=== PATIENT | female | born 1955 | race Caucasian/White ===

== ENCOUNTER 2018-08-05 10:59 | Inpatient (IN) ==
[2018-08-05] MEDS ORDERED: 0.9 % Sodium Chloride 1,000 ML IVC ONE (11:22)
--- NOTE | 2018-08-05 11:22 | Emergency Department Note ---
Disposition Clinical Impression: Hypomagnesemia, Hypocalcemia, Hypokalemia, Paresthesias Disposition: Admitted As Inpatient Condition: Good Referrals: NONE,PCP [Non-Partnered Physician] - Forms: ED Satisfaction Letter Time of Disposition: 12:10 Weakness HPI - General Chief complaint: ED Weakness Stated complaint: weakness, tingling, possible electrolite imbalance Time Seen by Provider: 08/05/18 11:09 Source: patient Mode of arrival: ambulatory Limitations: physical limitation, age Nursing Notes Reviewed: Yes Vital Signs Reviewed: Yes - History of Present Illness HPI Narrative: 63-year-old female who presents today with tingling and cramping in her arms and face. She states she has had this twice before both times her magnesium spelled very low. She presents today with 2 day history of getting worse. She states she has had some diarrhea recently. She states that she has had low magnesium in the past and she is taking magnesium and calcium supplements. She states that she was working yesterday in her house cleaning the house doing vacuuming and she started to feel very weak and like she was going to follow-up. She states the tingling got a lot worse after that. Pain Scale: 0 - Related Data Home Medications Medication Instructions Recorded Confirmed Cholecalciferol (D-3) [Vitamin D] 2,000 unit PO BID #0 01/12/16 08/05/18 Fish Oil/Dha/Epa [Fish Oil 1,200 1 cap PO DAILY #0 01/12/16 05/04/17 mg Fish Oil] Magnesium 200 mg PO DAILY #0 01/12/16 05/04/17 Carvedilol [Coreg] 6.25 mg PO BID 05/04/17 08/05/18 Clopidogrel [Plavix] 75 mg PO DAILY 05/04/17 08/05/18 Levothyroxine [Synthroid] 150 mcg PO DAILY 05/04/17 08/05/18 Olq198/Iron Fumarate/FA/Dss 1 tab PO DAILY 05/04/17 05/04/17 [ 19 Tablet] Previous Rx's Medication Instructions Recorded Atorvastatin [Lipitor] 80 mg PO HS #30 tablet 12/06/15 Lisinopril [Zestril] 2.5 mg PO DAILY #30 tablet 12/06/15 Nitroglycerin 0.4 mg SL Q5MIN PRN #30 tab.subl 12/06/15 Allergies Allergy/AdvReac Type Severity Reaction Status Date / Time Sulfa (Sulfonamide Allergy See Verified 08/05/18 11:01 Antibiotics) Comments Review of Systems: All other systems are negative except as noted/marked Chart generated with voice recognition software Nursing notes reviewed Old records reviewed Past Medical History - Past Medical History Attestation: Yes The following information was validated with the patient. Source: patient, old records reviewed, nursing notes reviewed Medical history: Reports: arthritis, CHF, coronary artery disease, hyperlipidemia, hypertension, kidney stones, myocardial infarction, thyroid disease, other Surgical history: Reports: angioplasty/stent, other (Gastric bypass in 1974) Psychiatric history: Reports: no psych history - Social History Smoking Status: Former smoker Smokeless Tobacco Status: No Alcohol use: Reports: none Drug use: Reports: none Physical Exam General: NAD, VSS Head: normocephalic, atraumatic, negative chvostek sign Eyes: EOMI, PERRLA mouth: moist mucous membranes Neck: NO CLA, Supple Chest wall: normal rise, no crepitus, no deformity noted Lungs: moving air well, no distress Heart: RRR Abd: soft, nontender, BS normal : deferred MSK: strength equal in all four extremities Ext: moves all four extremities, no obvious deformities, negative trousseau's sign Skin: cap refill normal, warm, dry neuro : CN2-12 grossly intact, A&Ox3 Psych: normal affect, not anxious - General Limitations: physical limitation, age General appearance: alert Course Vital Signs Temperature 97.3 F L 08/05/18 11:01 Pulse Rate 67 08/05/18 11:01 Respiratory Rate 18 08/05/18 11:01 Blood Pressure 113/62 08/05/18 11:01 O2 Sat by Pulse Oximetry 96 08/05/18 11:01 Temperature 97.3 F L 08/05/18 11:01 Pulse Rate 60 08/05/18 11:49 Respiratory Rate 18 08/05/18 11:49 Blood Pressure 113/77 08/05/18 11:49 O2 Sat by Pulse Oximetry 98 08/05/18 11:49 Oxygen Delivery Oxygen Delivery Room Air Weakness - MDM Narrative Medical decision making narrative: Patient presents today with numbness tingling paresthesias and weakness at home. She is low in her magnesium calcium and potassium. It started the initial replacement here in the department however her deficits or so profound that I do not think we can replace them adequately in the ER. I discussed that with allergies comfortable with being admitted in the hospital. Hospitalist will be paged for admission. Booker paged at [phone] booker accepted the patient. - Medical Records Medical records reviewed: Yes I reviewed the patient's medical records. - Lab Data Lab results reviewed: Yes I reviewed the patient's lab results. Result diagrams: 08/05/18 11:32 08/05/18 11:32 Lab Results 08/05/18 08/05/18 Range/Units 11:32 11:32 WBC 5.6 (4.3-11.1) K/mcL RBC 3.52 L (3.82-4.97) M/mcL Hgb 10.7 L (11.5-15.4) g/dL Hct 33.4 L (35.3-44.9) % MCV 94.9 (83.0-100.0) fL MCH 30.4 (28.0-33.3) pg MCHC 32.0 (31.6-35.5) g/dL RDW 13.7 (11.5-14.5) % Plt Count 182 (140-400) K/mcL MPV 10.9 (9.4-12.4) fL Immature Gran % 0.5 (0-4) % Seg Neutrophils % 73.2 % Lymphocytes % 15.9 % Monocytes % 7.0 % Eosinophils % 2.9 % Basophils % 0.5 % Neutrophils # 4.1 (1.6-8.9) K/mcL Lymphocytes # 0.9 (0.6-4.6) K/mcL Monocytes # 0.4 (0.0-1.3) K/mcL Eosinophils # 0.2 (0.0-0.6) K/mcL Basophils # 0.0 (0.0-0.2) K/mcL Sodium 141 (136-145) mEq/L Potassium 3.4 L (3.5-5.1) mEq/L Chloride 114 H (98-107) mEq/L Carbon Dioxide 20 L (23-29) mEq/L BUN 29 H (8-23) mg/dL Creatinine 1.36 H (0.60-1.20) mg/dL Est GFR ( Amer) 47 L (> 60) Est GFR (Non-Af Amer) 39 L (> 60) BUN/Creatinine Ratio 21 (6-26) Glucose 95 (70-105) mg/dL Calculated Osmolality 298 (280-300) Calcium 5.8 L* (8.6-10.3) mg/dL Phosphorus 3.8 (2.7-4.5) mg/dL Magnesium 0.5 L (1.6-2.6) mg/dL Troponin I < 0.03 (< 0.04) ng/mL TSH 3.282 (0.340-5.600) mcIU/mL - Radiology Data Radiology results reviewed: Yes I reviewed the patient's radiology results. EXAMINATION: SINGLE XRAY VIEW OF THE CHEST 08/05/2018 11:45 am COMPARISON: 05/04/2017. HISTORY: ORDERING SYSTEM PROVIDED HISTORY: weakness FINDINGS: The heart size is within normal limits. The pulmonary vasculature is also within normal limits. No acute infiltrates are seen. The costophrenic angles are sharp bilaterally. No pneumothoraces are noted.There is gaseous distention of the transverse colon. XR/XR chest 1V portable IMPRESSION: 1. No active pulmonary disease. D/ / Babar Murray MD / Babar Murray MD Interpreting Provider: Babar Murray MD - EKG Data EKG attestation: Yes I reviewed and interpreted this EKG. EKG results narrative: EKG interpreted by myself as a sinus rhythm with a rate of 62 she has a prolonged WI interval first-degree block at 232 QTc of [address] elevation but she does have new flipped T waves in aVL and V2 compared with prior EKG from 2017 this was not present at that time
[2018-08-05 11:39] LABS: Basophils % 0.5 %; Eosinophils # 0.2 K/mcL (0.0-0.6); Eosinophils % 2.9 %; Hematocrit 33.4 % (35.3-44.9); Hemoglobin 10.7 g/dL (11.5-15.4); Immature Granulocytes % 0.5 % (0-4); Lymphocytes # 0.9 K/mcL (0.6-4.6); Lymphocytes % 15.9 %; Mean Corpuscular Hemoglobin 30.4 pg (28.0-33.3); Mean Corpuscular Volume 94.9 fL (83.0-100.0); Mean Platelet Volume 10.9 fL (9.4-12.4); Monocytes # 0.4 K/mcL (0.0-1.3); Neutrophils # 4.1 K/mcL (1.6-8.9); Platelet Count 182 K/mcL (140-400); Red Blood Count 3.52 M/mcL (3.82-4.97); Red Cell Distribution Width 13.7 % (11.5-14.5); Segmented Neutrophils % 73.2 %
[2018-08-05 11:59] LABS: BUN/Creatinine Ratio 21 (6-26); Blood Urea Nitrogen 29 mg/dL (8-23); Calcium 5.8 mg/dL (8.6-10.3); Carbon Dioxide 20 mEq/L (23-29); Chloride 114 mEq/L (98-107); Glucose 95 mg/dL (70-105); Magnesium 0.5 mg/dL (1.6-2.6); Osmolality,Calculated 298 (280-300); Phosphorous 3.8 mg/dL (2.7-4.5); Potassium 3.4 mEq/L (3.5-5.1); Sodium 141 mEq/L (136-145); eGFR For Non-African Americans 39 (> 60)
[2018-08-05 12:15] LABS: Thyroid Stimulating Hormone 3.282 mcIU/mL (0.340-5.600); Troponin I < 0.03 ng/mL (< 0.04)
[2018-08-05 13:13] LABS: Bilirubin,Urine Negative (Negative); Blood,Urine Negative (Negative); Clarity,Urine Clear (Clear); Color,Urine Yellow (Yellow); Glucose,Urine (UA) Normal (Normal); Ketones,Urine Negative (Negative); Leukocyte Esterase,Urine Small (Negative); Nitrite,Urine Positive (Negative); PH,Urine 6.5 pH Units (5.0-8.0); Protein,Urine Trace mg/dL (Neg-Trace); Urobilinogen,Urine Normal (Normal)
[2018-08-05 13:26] LABS: Bacteria,Urine Many per hpf (None-Few); Squamous Epithelial Cell,Urine Few per lpf (None-Few)
[2018-08-05 13:27] LABS: WBC,Urine 15-30 per hpf (0-3)
[2018-08-05] MEDS ORDERED: Acetaminophen 325 MG TABLET PO PRN (14:23)
[2018-08-05] MEDS ORDERED: Nitroglycerin 0.4 MG TAB.SUBL SL PRN (14:23)
[2018-08-05] MEDS ORDERED: Naloxone 0.4 MG/ML INJ IVP PRN (14:23)
[2018-08-05] MEDS: cephALEXin 500 MG CAPSULE PO SCH ×2 (15:49→21:34)
--- NOTE | 2018-08-05 17:11 | Internal Med History&Physical ---
Date of Encounter: 08/05/18 Time of Encounter: 16:40 Assessment and Plan (1) Hypomagnesemia Current visit: Yes Status: Chronic She received 2 g magnesium sulfate IV in emergency room. Follow-up magnesium level will be ordered. (2) Hypokalemia Current visit: No Status: Acute Supplemental potassium has been ordered. Labs will be monitored. (3) Anemia Current visit: No Status: Acute Anemia testing will be ordered. Qualifiers: Anemia type: unspecified type Qualified Code(s): D64.9 - Anemia, unspecified (4) Hypocalcemia Current visit: Yes Status: Acute 1 g of calcium gluconate was given in emergency room. Monitor labs. (5) Azotemia Current visit: Yes Status: Acute IV fluids have been ordered. Recheck labs (6) Ischemic cardiomyopathy Current visit: No Status: Chronic Continue Plavix. Coreg will be held at this time because of hypotension. (7) CKD (chronic kidney disease) stage 3, GFR 30-59 ml/min Current visit: Yes Status: Acute Acute on chronic renal failure. IV fluids have been ordered. Recheck labs. (8) HTN (hypertension) Current visit: No Status: Chronic Lisinopril and Coreg will be held because of hypotension. Qualifiers: Hypertension type: essential hypertension Qualified Code(s): I10 - Essential (primary) hypertension (9) Hypothyroidism Current visit: Yes Status: Chronic TSH was normal at 3.282 in emergency room. Continue present dose Synthroid. Qualifiers: Hypothyroidism type: unspecified Qualified Code(s): E03.9 - Hypothyroidism, unspecified Internal Medicine - H&P: HPI Chief complaint: Hand and face tingling, weakness Admitted From: Emergency Dept Plans for Post Hospital Care: Home History of present illness: Ms. Linda is a 63 year old female who came to emergency room stating she had 3 day history of numbness and tingling in her face and hands with progressive weakness. She reports 2 episodes of loose stools in the past 24 hours. She felt she was having chemical imbalance so came to emergency room. She was found to have severe hypocalcemia, hypomagnesemia, hypokalemia, and azotemia. She was admitted to [facility] floor for ongoing care needs. She denies vomiting or previous recent diarrhea other than per above. She does not take diuretics. She had gastric bypass surgery in 1977. She has had "gallbladder problems" in the past but has not had cholecystectomy. She denies disorders of her liver or exocrine pancreas. Past Med Surg Social Fam HX - Past Medical History Medical history: arthritis, CHF, coronary artery disease, hyperlipidemia, hypertension, kidney stones, myocardial infarction, thyroid disease, other Additional medical history: ANEMIA Psychiatric history: no psych history - Past Surgical History Surgical History: angioplasty/stent, other Additional surgical history: gastric bypass. nodule removed from neck benign - Social History Smoking Status: Former smoker Smokeless Tobacco Status: No Alcohol use: none Drug use: none - Family History Father Family Member Ethnicity: Non- Living Status: Hx Family Cardiac Disorders: Yes Brother Family Member Ethnicity: Non- Living Status: Hx Family Cancer: Yes Sister Family Member Ethnicity: Non- Living Status: Hx Family Cardiac Disorders: Yes Hx Family Cancer: Yes Hx Family Neurologic Disorders: Yes Mother Family Member Ethnicity: Non- Living Status: Hx Family Cardiac Disorders: Yes Hx Family Respiratory Disorders: Yes Hx Family Cancer: Yes Hx Family GI Disorders: No Hx Family Endocrine Disorder: No Hx Family Neuromuscular Disorders: No Hx Family Neurologic Disorders: No Hx Family HEENT Disorders: No Hx Family Autoimmune Disorders: No Internal Medicine - H&P: Meds Atorvastatin [Lipitor] 80 mg PO HS #30 tablet 12/06/15 [Rx] Lisinopril [Zestril] 2.5 mg PO DAILY #30 tablet 12/06/15 [Rx] Nitroglycerin 0.4 mg SL Q5MIN PRN #30 tab.subl 12/06/15 [Rx] Cholecalciferol (D-3) [Vitamin D] 2,000 unit PO BID #0 01/12/16 [History] Fish Oil/Dha/Epa [Fish Oil 1,200 mg Fish Oil] 1 cap PO DAILY #0 01/12/16 [History] Magnesium 200 mg PO DAILY #0 01/12/16 [History] Carvedilol [Coreg] 6.25 mg PO BID 05/04/17 [History] Clopidogrel [Plavix] 75 mg PO DAILY 05/04/17 [History] Levothyroxine [Synthroid] 150 mcg PO DAILY 05/04/17 [History] Ane642/Iron Fumarate/FA/Dss [ 19 Tablet] 1 tab PO DAILY 05/04/17 [History] Allergy/AdvReac Type Severity Reaction Status Date / Time Sulfa (Sulfonamide Allergy See Verified 08/05/18 11:01 Antibiotics) Comments All Systems PM: A 10-system review of systems was performed and is negative for pertinent findings except as documented above in the HPI. Review of systems: Review of systems from her January 2016 [facility] hospitalization were reviewed and rev ised as below. Gen.: Her weight has decreased from 77.292 kg at the January 2016 [facility] hospitalization to 70.307 kg at present Cardiovascular: She had an OH November 2015 and had a PTCA/ KIMBERLI placement in the proximal LAD. She had LVEF of 30-35%. She had a heart catheter 05/05/2017 [facility] which showed LVEF of 30%. The LMCA was free of disease. There was 50% stenosis in the mid LAD, 50% stenosis in the mid circumflex, no significant disease in PDA, and 15% stenosis in the mid RCA. It was recommended that she continue antiplatelet therapy. She denies DVT or pulmonary embolus. She has declined a recommended AICD implant. Respiratory: She quit smoking in November 2015 after smoking a total of approxim ately 32 years beginning at age 22. She smoked up to 1-1/2 packs per day. She has not had PFTs and does not wear home oxygen and has not been tested for sleep apnea. GI: As per history of present illness : She had a kidney stone approximately age 34 but denies other kidney or bladder disorders. Neurologic: She denies large distribution strokes or seizures Endocrine: She has hypothyroidism and hyperlipidemia but no known diabetes. Hematology/oncology: She has anemia but denies internal malignancies Psychiatric: She denies anxiety depression or other mental health issues Musk skeletal: She has DJD but denies known gout or osteoporosis. - Constitutional Vitals: Temp Pulse Resp BP Pulse Ox 97.3 F L 56 20 93/65 99 08/05/18 11:01 08/05/18 13:31 08/05/18 13:31 08/05/18 13:31 08/05/18 13:59 Exam: Gen.: She is a well-developed well-nourished female resting comfortably in bed who appears in no acute distress at present time HEENT: Head is atraumatic and normocephalic. Eyes: EOMI. There is no scleral icterus. Mouth: Mucosa is moist. Neck: Supple and nontender. There is no thyromegaly or adenopathy noted. Heart: Regular without murmurs gallops or ectopics Lungs: No wheezes or crackles are heard. Abdomen: Soft and nontender. No masses or guarding are noted. Extremities: There is no cyanosis edema or clubbing noted. Dorsalis pedis and posterior tibial pulses are trace palpable bilaterally. Neurologic: Mental status: She is talkative and a good historian. Cranial nerves: Smile is symmetric. Forehead wrinkles bilaterally. Tongue protrudes midline. EOMI. Motor: There is no pronator drift. Cerebellar: Fair to nose is intact bilaterally. Skin: Warm and dry Internal Med - H&P Results - Labs CBC & Chem 7: 08/05/18 11:32 08/05/18 11:32 Labs: Short CBC 08/05/18 Range/Units 11:32 WBC 5.6 (4.3-11.1) K/mcL Hgb 10.7 L (11.5-15.4) g/dL Hct 33.4 L (35.3-44.9) % Plt Count 182 (140-400) K/mcL Neutrophils # 4.1 (1.6-8.9) K/mcL BMP 08/05/18 11:32 Sodium 141 Potassium 3.4 L Chloride 114 H Carbon Dioxide 20 L BUN 29 H Creatinine 1.36 H Glucose 95 Calcium 5.8 L* Cardiac Enzymes 08/05/18 Range/Units 11:32 Troponin I < 0.03 (< 0.04) ng/mL Urine 08/05/18 Range/Units 13:09 Urine Color Yellow (Yellow) Urine Clarity Clear (Clear) Urine pH 6.5 (5.0-8.0) pH Units Ur Specific [place] 1.010 (1.010-1.025) Urine Protein Trace (Neg-Trace) mg/dL Urine Glucose (UA) Normal (Normal) mg/dL - Impressions ITS Impressions Chest X-Ray 08/05/18 11:22 IMPRESSION: 1. No active pulmonary disease. D/ / Babar Murray MD / Babar Murray MD Interpreting Provider: Babar Murray MD
[2018-08-05 17:48] LABS: Albumin 3.6 g/dL (3.5-5.7); Albumin/Globulin Ratio 1.6 (1.1-2.2); Bilirubin,Total 0.7 mg/dL (0.3-1.0); Calcium 6.2 mg/dL (8.6-10.3); Globulin 2.3 g/dL (2.4-3.5); Potassium 3.6 mEq/L (3.5-5.1); Total Protein 5.9 g/dL (6.4-8.9)
[2018-08-05] MEDS: 0.45 % Sodium Chloride w/KCl 20 MEQ/1,000 ML MLS IVC SCH (18:53)
[2018-08-05] MEDS: Cholecalciferol (D-3) 1,000 UNIT TABLET PO SCH (21:34)
[2018-08-06 05:40] LABS: Basophils % 0.5 %; Eosinophils # 0.2 K/mcL (0.0-0.6); Eosinophils % 3.1 %; Hematocrit 30.4 % (35.3-44.9); Hemoglobin 9.7 g/dL (11.5-15.4); Immature Granulocytes % 0.4 % (0-4); Lymphocytes # 1.2 K/mcL (0.6-4.6); Lymphocytes % 22.7 %; Mean Corpuscular HGB Conc 31.9 g/dL (31.6-35.5); Mean Corpuscular Hemoglobin 30.4 pg (28.0-33.3); Mean Corpuscular Volume 95.3 fL (83.0-100.0); Mean Platelet Volume 11.2 fL (9.4-12.4); Monocytes # 0.3 K/mcL (0.0-1.3); Monocytes % 5.5 %; Neutrophils # 3.7 K/mcL (1.6-8.9); Platelet Count 168 K/mcL (140-400); Red Blood Count 3.19 M/mcL (3.82-4.97); Red Cell Distribution Width 13.5 % (11.5-14.5); Segmented Neutrophils % 67.8 %
[2018-08-06 06:18] LABS: Albumin 3.2 g/dL (3.5-5.7); Albumin/Globulin Ratio 1.5 (1.1-2.2); Bilirubin,Total 0.7 mg/dL (0.3-1.0); Chol/HDL Ratio 1.7 (0-4.9); Globulin 2.2 g/dL (2.4-3.5); Potassium 3.9 mEq/L (3.5-5.1); Total Protein 5.4 g/dL (6.4-8.9)
[2018-08-06] MEDS: Cholecalciferol (D-3) 1,000 UNIT TABLET PO SCH (08:36)
[2018-08-06] MEDS: cephALEXin 500 MG CAPSULE PO SCH (08:43)
[2018-08-06] MEDS: Prenatal Vit/FA 1 EACH TABLET PO SCH (08:43)
[2018-08-06] MEDS ORDERED: Magnesium Oxide 400 MG TABLET PO SCH (09:00)
[2018-08-06] MEDS: 0.45 % Sodium Chloride w/KCl 20 MEQ/1,000 ML MLS IVC SCH ×3 (09:05→20:06)
[2018-08-06] MEDS: (Fish Oil/Dha/Epa [Fish Oil 1,200 Mg Fish Oil] 1 CAP) PO SCH (09:14)
[2018-08-06] MEDS ORDERED: 0.45 % Sodium Chloride w/KCl 20 MEQ/1,000 ML MLS IVC SCH (09:56)
--- NOTE | 2018-08-06 10:05 | Internal Med Progress Note ---
Date of Encounter: 08/06/18 Time of Encounter: 09:57 - Assessment and plan (1) Hypomagnesemia Current Visit: Yes Status: Chronic Assessment and plan: August 06. Magnesium level still low. Give additional magnesium sulfate IV and increase oral magnesium oxide. (2) Hypokalemia Current Visit: No Status: Acute Assessment and plan: August 06. Potassium now normal. Continue IV fluids with supplemental potassium. (3) Anemia Current Visit: No Status: Acute Assessment and plan: August 06. Hemoglobin has decreased to 9.7. Anemia testing pending. Qualifiers: Anemia type: unspecified type Qualified Code(s): D64.9 - Anemia, unspecified (4) Hypocalcemia Current Visit: Yes Status: Acute Assessment and plan: August 06. Calcium level still significantly low at 6.0. Additional IV calcium gluconate was given earlier today. Start oral calcium carbonate and monitor labs. PTH pending. (5) Azotemia Current Visit: Yes Status: Acute Assessment and plan: August 06. Improved with BUN and creatinine 26 and 1.22 respectively. Continue IV fluids and monitor labs. (6) Ischemic cardiomyopathy Current Visit: No Status: Chronic Assessment and plan: August 06. Continue Plavix and withholding Coreg because of hypotension. (7) CKD (chronic kidney disease) stage 3, GFR 30-59 ml/min Current Visit: Yes Status: Acute Assessment and plan: August 06. Renal indices improved as per above. Continue present therapy. (8) HTN (hypertension) Current Visit: No Status: Chronic Assessment and plan: August 06. Hypotension persists. Continue to hold Coreg and lisinopril. Qualifiers: Hypertension type: essential hypertension Qualified Code(s): I10 - Essential (primary) hypertension (9) Hypothyroidism Current Visit: Yes Status: Chronic Assessment and plan: August 06. TSH normal at 3.282 in ER. Continue Synthroid. Qualifiers: Hypothyroidism type: unspecified Qualified Code(s): E03.9 - Hypothyroidism, unspecified (10) HLD (hyperlipidemia) Current Visit: No Status: Chronic Assessment and plan: August 06. Lipid profile showed triglycerides 46, total cholesterol 43, LDL 9, HDL 25, and total/HDL ratio 1.7. Hold Lipitor. Qualifiers: Hyperlipidemia type: pure hypercholesterolemia Qualified Code(s): E78.00 - Pure hypercholesterolemia, unspecified; E78.0 - Pure hypercholesterolemia - Subjective Interval history: August 06. She has no new complaints and states she feels significantly improved. - Constitutional Vitals: Temp Pulse Resp BP Pulse Ox 97.6 F 62 16 99/60 98 08/06/18 06:46 08/06/18 06:46 08/06/18 06:46 08/06/18 06:46 08/06/18 06:46 Exam: She is resting comfortably in bed and appears in no acute distress. Her affect is bright and cheerful. I reviewed her medications and lab results. Internal Medicine: Result - Labs CBC & Chem 7: 08/06/18 05:26 08/06/18 05:26 Labs: Short CBC 08/05/18 08/06/18 Range/Units 11:32 05:26 WBC 5.6 5.5 (4.3-11.1) K/mcL Hgb 10.7 L 9.7 L (11.5-15.4) g/dL Hct 33.4 L 30.4 L (35.3-44.9) % Plt Count 182 168 (140-400) K/mcL Neutrophils # 4.1 3.7 (1.6-8.9) K/mcL BMP 08/05/18 08/05/18 08/06/18 11:32 17:27 05:26 Sodium 141 145 142 Potassium 3.4 L 3.6 3.9 Chloride 114 H 118 H 119 H Carbon Dioxide 20 L 16 L 14 L BUN 29 H 27 H 26 H Creatinine 1.36 H 1.41 H 1.22 H Glucose 95 129 H 89 Calcium 5.8 L* 6.2 L 6.0 L* Cardiac Enzymes 08/05/18 Range/Units 11:32 Troponin I < 0.03 (< 0.04) ng/mL Liver Function 08/05/18 08/06/18 Range/Units 17:27 05:26 Total Bilirubin 0.7 0.7 (0.3-1.0) mg/dL AST 25 22 (13-39) Units/L ALT 26 24 (7-52) Units/L Alkaline Phosphatase 64 58 (34-104) Units/L Albumin 3.6 3.2 L (3.5-5.7) g/dL Urine 08/05/18 Range/Units 13:09 Urine Color Yellow (Yellow) Urine Clarity Clear (Clear) Urine pH 6.5 (5.0-8.0) pH Units Ur Specific [place] 1.010 (1.010-1.025) Urine Protein Trace (Neg-Trace) mg/dL Urine Glucose (UA) Normal (Normal) mg/dL - Impressions Impressions Chest X-Ray 08/05/18 11:22 IMPRESSION: 1. No active pulmonary disease. D/ / Babar Murray MD / Babar Murray MD Interpreting Provider: Babar Murray MD Consult Discharge Plan - Plan Referrals: Cristal Butler MD [Primary Care Provider] - 1 week
[2018-08-06 11:24] LABS: Vitamin B12 185 pg/mL (250-1100)
[2018-08-06 11:27] LABS: Folate > 22.3 ng/mL (3.0-16.0)
[2018-08-06 16:27] LABS: Albumin 3.7 g/dL (3.5-5.7); Albumin/Globulin Ratio 1.5 (1.1-2.2); Bilirubin,Total 0.8 mg/dL (0.3-1.0); Calcium 6.9 mg/dL (8.6-10.3); Globulin 2.4 g/dL (2.4-3.5); Magnesium 1.5 mg/dL (1.6-2.6); Potassium 4.4 mEq/L (3.5-5.1); Total Protein 6.1 g/dL (6.4-8.9)
[2018-08-06] MEDS: Magnesium Oxide 400 MG TABLET PO SCH (20:08)
[2018-08-07 06:19] LABS: Basophils % 0.5 %; Eosinophils # 0.2 K/mcL (0.0-0.6); Eosinophils % 3.6 %; Hematocrit 31.5 % (35.3-44.9); Immature Granulocytes % 0.3 % (0-4); Lymphocytes # 1.2 K/mcL (0.6-4.6); Lymphocytes % 20.8 %; Mean Corpuscular HGB Conc 31.7 g/dL (31.6-35.5); Mean Corpuscular Hemoglobin 30.4 pg (28.0-33.3); Mean Corpuscular Volume 95.7 fL (83.0-100.0); Mean Platelet Volume 11.5 fL (9.4-12.4); Monocytes # 0.4 K/mcL (0.0-1.3); Monocytes % 6.4 %; Neutrophils # 3.9 K/mcL (1.6-8.9); Platelet Count 150 K/mcL (140-400); Red Blood Count 3.29 M/mcL (3.82-4.97); Red Cell Distribution Width 13.6 % (11.5-14.5); Segmented Neutrophils % 68.4 %
[2018-08-07 06:52] LABS: Albumin 3.5 g/dL (3.5-5.7); Albumin/Globulin Ratio 1.6 (1.1-2.2); Bilirubin,Total 0.8 mg/dL (0.3-1.0); Calcium 7.2 mg/dL (8.6-10.3); Globulin 2.2 g/dL (2.4-3.5); Total Protein 5.7 g/dL (6.4-8.9)
[2018-08-07] MEDS: Magnesium Oxide 400 MG TABLET PO SCH (08:25)
[2018-08-07] MEDS: Prenatal Vit/FA 1 EACH TABLET PO SCH (08:25)
[2018-08-07] MEDS: (Fish Oil/Dha/Epa [Fish Oil 1,200 Mg Fish Oil] 1 CAP) PO SCH (08:26)
[2018-08-07] MEDS: Cholecalciferol (D-3) 1,000 UNIT TABLET PO SCH (08:26)
[2018-08-07] MEDS ORDERED: Cyanocobalamin (B-12) 1,000 MCG/ML VIAL IM ONE (09:45)
--- NOTE | 2018-08-07 09:57 | Discharge Summary ---
Orders not resulted at time of discharge: Pending orders 08/06/18 05:26 Zinc AM 0400 Date of Encounter: 08/07/18 Time of Encounter: 09:45 - Discharge Diagnosis (1) Hypomagnesemia Priority: Primary Status: Chronic (2) Hypokalemia Priority: Secondary Status: Acute (3) Anemia Priority: Secondary Status: Acute Qualifiers: Anemia type: B12 deficiency Vitamin B12 deficiency anemia type: unspecified B12 deficiency Qualified Code(s): D51.9 - Vitamin B12 deficiency anemia, unspecified (4) Hypocalcemia Priority: Secondary Status: Acute (5) Azotemia Priority: Secondary Status: Acute (6) Ischemic cardiomyopathy Priority: Secondary Status: Chronic (7) CKD (chronic kidney disease) stage 3, GFR 30-59 ml/min Priority: Secondary Status: Chronic (8) HTN (hypertension) Priority: Secondary Status: Chronic Qualifiers: Hypertension type: essential hypertension Qualified Code(s): I10 - Essential (primary) hypertension (9) Hypothyroidism Priority: Secondary Status: Chronic Qualifiers: Hypothyroidism type: unspecified Qualified Code(s): E03.9 - Hypothyroidism, unspecified (10) HLD (hyperlipidemia) Priority: Secondary Status: Chronic Qualifiers: Hyperlipidemia type: pure hypercholesterolemia Qualified Code(s): E78.00 - Pure hypercholesterolemia, unspecified; E78.0 - Pure hypercholesterolemia Hospital course: Ms. Linda is a 63 year old female who came to emergency room stating she had 3 day history of numbness and tingling in her face and hands with progressive weakness. She reports 2 episodes of loose stools in the past 24 hours. She felt she was having chemical imbalance so came to emergency room. She was found to have severe hypocalcemia, hypomagnesemia, hypokalemia, and azotemia. She was admitted to [facility] floor for ongoing care needs. Initial orders were written by the emergency room physician. I saw her on August 05 and performed a history and physical. She was given 2 g of magnesi um sulfate IV in emergency room. An additional 2 g IV were given the following day when she had improved but persistent hypomagnesemia. She was started on oral magnesium oxide. Her magnesium level improved to 1.5 on the day prior to discharge. She will continue with magnesium oxide at home for 7 days. Her PCP can monitor. IV calcium gluconate was given x 2 and calcium level improved to 7.2 by day of discharge. She was also started on oral calcium carbonate. She will continue calcium carbonate at discharge. Her PCP can monitor. Anemia testing showed iron 64, transferrin saturation 19%, transferrin 235, ferritin 53, B12 185, and folate> 22.3. She was given a B12 injection prior to discharge and will start oral B12 supplement at home. Her hemoglobin was stable at 10.0 on day of discharge. Supplemental potassium in IV fluids were given. BUN and creatinine improved to 21 and 1.14 respectively by day of discharge with estimated GFR 48. Potassium normalized to 4.0. Her PCP can monitor. Urine culture returned showing Escherichia coli. She was started empirically on Keflex in emergency room. She will continue Keflex with lactobacillus for 3 additional days at discharge. On August 07 she felt significantly improved and stable for discharge home. She will follow with her PCP Dr. Butler within 1 week. - Time Spent with Patient Total time spent providing and/or coordinating discharge services: - Discharge Medications Prescriptions: Calcium Carbonate [Tums] 500 mg PO QID #28 tab.chew cephALEXin [Keflex] 500 mg PO TID #9 capsule Cyanocobalamin (B-12) [Vitamin B12] 1,000 mcg PO DAILY #30 tablet Lactobacillus [Culturelle] 1 each PO BID #6 cap.sprink Magnesium Oxide 400 mg PO BID #14 tablet Home Medications: Nitroglycerin 0.4 mg SL Q5MIN PRN #30 tab.subl 12/06/15 [Rx] Cholecalciferol (D-3) [Vitamin D] 2,000 unit PO BID #0 01/12/16 [History] Fish Oil/Dha/Epa [Fish Oil 1,200 mg Fish Oil] 1 cap PO DAILY #0 01/12/16 [History] Clopidogrel [Plavix] 75 mg PO DAILY 05/04/17 [History] Levothyroxine [Synthroid] 150 mcg PO DAILY 05/04/17 [History] Utu492/Iron Fumarate/FA/Dss [ 19 Tablet] 1 tab PO DAILY 05/04/17 [History] Calcium Carbonate [Tums] 500 mg PO QID #28 tab.chew 08/07/18 [Rx] Cyanocobalamin (B-12) [Vitamin B12] 1,000 mcg PO DAILY #30 tablet 08/07/18 [Rx] Lactobacillus [Culturelle] 1 each PO BID #6 cap.sprink 08/07/18 [Rx] Magnesium Oxide 400 mg PO BID #14 tablet 08/07/18 [Rx] cephALEXin [Keflex] 500 mg PO TID #9 capsule 08/07/18 [Rx] Allergies/Adverse Reactions: Allergy/AdvReac Type Severity Reaction Status Date / Time Sulfa (Sulfonamide Allergy See Verified 08/05/18 11:01 Antibiotics) Comments Date of admission: 08/05/18 17:29 Primary care physician: Cristal Butler - Constitutional Vitals: Temp Pulse Resp BP Pulse Ox 97.7 F 58 16 104/64 98 08/07/18 07:24 08/07/18 07:24 08/07/18 07:24 08/07/18 07:24 08/07/18 07:24 - Patient Status Disposition: Home, Self-Care Condition: Good - Discharge Instructions Follow Up With: Cristal Butler MD [Primary Care Provider] - 1 week - Diet and Activity Activity: resume usual activities as tolerated Diet: advance to your usual diet
[2018-08-07 10:32] VITALS: BP 122/68
--- NOTE | 2018-08-07 18:26 | Electrocardiograph Report ---
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
--- NOTE | 2018-08-08 15:56 | Electrocardiograph Report ---
[address] [place], [place] [address] Test Date: 2018-08-06 Pat Name: Gypsy Linda Department: [id number] Room: [facility] Gender: F [employer]: [id number] : 1955 Requested By: Sarika Escudero Order Number: [id number] Reading MD: Ronaldo Cobos Measurements Intervals [place] Rate: 58 P: 56 MO: 225 QRS: -22 QRSD: 98 T: 50 QT: 425 QTc: 421 Interpretive Statements SINUS BRADYCARDIA WITH FIRST DEGREE AV BLOCK LOW VOLTAGE PRECORDIAL LEADS SEPTAL MYOCARDIAL INFARCTION, OF INDETERMINATE AGE ANTEROSEPTAL T-WAVE ABNORMALITY, CONSIDER ISCHEMIA Electronically Signed On 08-08-2018 15:54:20 EST by Ronaldo Cobos
== END 2018-08-07 11:05 | disposition home or self-care (01) | DRG 641 ==
LOC: INPPIK 10:59 → EMEROOPIK 10:59 → INPPIK 13:45
PROVIDERS: ADMIT Internal Medicine; ATTEND Internal Medicine